=== PATIENT | female | born 1980 | race Caucasian/White ===

== ENCOUNTER 2025-10-10 10:32 | Emergency (ER) | payer BC ==
[~2025-10-10] VITALS: Ht 154.9 cm; Wt 47.6 kg
[2025-10-10 10:48] VITALS: BP 123/71; TEMP 98.4
[2025-10-10] MEDS ORDERED: METR-147 PO (11:48)
[2025-10-10] MEDS ORDERED: ACYC-108 PO (11:48)
[2025-10-10 11:52] VITALS: O2SAT 99
== END 2025-10-10 11:53 | disposition home or self-care (01) ==
LOC: ER 10:43
DX: A59.9 Trichomoniasis, unspecified (principal); B00.9 Herpesviral infection, unspecified